=== PATIENT | female | born 1995 | race Hispanic/Latino ===

== ENCOUNTER 2018-06-12 10:41 | Emergency (ER) | payer BC, OTHER ==
--- NOTE | 2018-06-12 11:29 | ED PDOC ---
Upper Extremity Pain/Injury Time Seen by Provider: 06/12/18 10:49 Chief Complaint (Nursing): Finger,Hand,&Wrist Chief Complaint (Provider): Finger pain and swelling History Per: Patient Additional Complaint(s): 22 yo female, no PMH, presents to ED for evaluation of redness, swelling and pain to right middle finger over last 2 days. 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 Past Medical History Reviewed: Nursing Documentation, Vital Signs Vital Signs: Last Vital Signs Temp 99.1 F 06/12/18 10:50 Pulse 108 H 06/12/18 10:50 Resp 16 06/12/18 10:50 BP 117/73 06/12/18 10:50 Pulse Ox 97 06/12/18 10:50 - Medical History PMH: No Chronic Diseases - Surgical History Surgical History: No Surg Hx - Family History Family History: States: No Known Family Hx - Living Arrangements Living Arrangements: With Friends/Others - Social History Current smoker - smoking cessation education provided: No Alcohol: Social Drugs: Denies - Home Medications Home Medications: Ambulatory Orders Medication Instructions Recorded Clindamycin [Cleocin] 300 mg PO Q6 7 Days cap 06/12/18 Ibuprofen [Motrin] 600 mg PO Q6 #20 tab 06/12/18 - Allergies Allergies/Adverse Reactions: Allergies Allergy/AdvReac Type Severity Reaction Status Date / Time No Known Allergies Allergy Verified 06/12/18 11:16 Review of Systems ROS Statement: Except As Marked, All Systems Reviewed And Found Negative Skin: Positive for: Other (finger injury) Physical Exam - Reviewed Nursing Documentation Reviewed: Yes Vital Signs Reviewed: Yes - Physical Exam Appears: Positive for: Well, Non-toxic, No Acute Distress Head Exam: Positive for: ATRAUMATIC, NORMAL INSPECTION, NORMOCEPHALIC Skin: Positive for: Normal Color, Warm, DRY Eye Exam: Positive for: EOMI, Normal appearance, PERRL ENT: Positive for: Normal ENT Inspection Neck: Positive for: Normal, Painless ROM Cardiovascular/Chest: Positive for: Regular Rate, Rhythm Respiratory: Positive for: CNT, Normal Breath Sounds Gastrointestinal/Abdominal: Positive for: Normal Exam, Soft Back: Positive for: Normal Inspection Extremity: Positive for: Other (right 3rd digit: Mild erythema, edema noted surrounding cuticle.) Neurologic/Psych: Positive for: Alert, Oriented - ECG O2 Sat by Pulse Oximetry: 97 Medical Decision Making Medical Decision Making: Paronychia drained by advertising copywriter. see procedure note Disposition - Clinical Impression Clinical Impression: Paronychia of finger - Patient ED Disposition Is Patient to be Admitted: No - Disposition Disposition: Routine/Home Disposition Time: 11:31 Condition: STABLE Prescriptions: Clindamycin [Cleocin] 300 mg PO Q6 7 Days cap Ibuprofen [Motrin] 600 mg PO Q6 #20 tab Instructions: Paronychia Forms: [employer] ([facility]) - Incision & Drainage Of Abscess Prep Used: Sterile Water, Betadine Procedure: Incised W/Scalpel Blade#: ([id number]), Drained Pus, Cultures Obtained And Sent To Lab
[2018-06-12 11:30] VITALS: RESP 19
[2018-06-12 11:54] VITALS: BP 128/78; PULSE 78; TEMP 98; O2SAT 98
== END 2018-06-12 11:55 | disposition home or self-care (01) ==
LOC: H.ER 10:41
DX: L03.011 Cellulitis of right finger (principal)